=== PATIENT | female | born 1935 | race Asian ===

== ENCOUNTER → 2019-04-03 14:21 | Outpatient (POV) | payer OTHER, MEDICARE, SELFPAY | PROVIDERS: Visit Provider Dermatology | DX: Z00.00 Encounter for general adult medical examination without abnormal findings (principal) ==

== ENCOUNTER 2020-11-07 19:11 | Emergency (ER) | payer MEDICARE, OTHER, SELFPAY ==
[2020-11-07 20:08] VITALS: BP 230/102
[2020-11-07 20:43] VITALS: BP 224/99; PULSE 91; RESP 18; TEMP 36.7; O2SAT 97; BMI 27.8
--- NOTE | 2020-11-07 20:49 | HMH.EDUTC ---
[facility] [place] Disposition Clinical Impression: Right arm pain, Hypertensive crisis Disposition: Still a Patient Condition on Discharge: Fair Referrals: Dereje Marion MD [Primary Care Provider] - Medical Decision Making - Medical Records Medical records reviewed: No: I reviewed the patient's medical records. - Rolando Inquiry Pt receiving controlled substance: No Vital Signs: 11/07/20 20:43 Temperature 98.1 F Temperature Source Oral Pulse Rate [Left] 91 H Respiratory Rate 18 Blood Pressure [Left Arm] 224/99 H Blood Pressure Mean [Left Arm] 140 02 Sat by Pulse Oximetry 97 Medical Decision Narrative: She was transferred to the ER due to her very high b/p and her arm pain. [facility] [place] HPI - General Stated complaint: r elbow hand Time Seen by Provider: 11/07/20 20:49 - History of Present Illness Provider Complaint: She states that for the past 2 days she has had right arm pain. She thinks that she hurt it by trying to lift her . She states that it has hurt basically constantly from her mid-humerus area down to her hand. Nothing that she can identify makes it better or worse. She denies any chest pain and shortness of breath. [facility] History - Hepatitis A Screen Attestation statement:: This patient has been screened for Hepatitis A risk factors. I have reviewed the patient's past medical history: Yes ROS Obtained: Yes All systems reviewed & no additional complaints - Constitutional Constitutional: Denies chills, Denies fever(s) - Eyes Eyes: Denies blind spots, Denies blurry vision, Denies change in vision, Denies diplopia, Denies eye discharge - ENT Ears, Nose, Mouth, and Throat: Denies dizziness, Denies otalgia, Denies sore throat - Cardiovascular Cardiovascular: Denies chest pain - Respiratory Respiratory: Denies chest congestion, Denies cough, Denies dyspnea, Denies stridor, Denies wheezing - Gastrointestinal Gastrointestingal: Denies: abdominal pain, diarrhea, nausea, vomiting - Musculoskeletal Musculoskeletal: Reports as per HPI - Integumentary/Breasts Skin/Breast: Denies redness, Denies rash, Denies wounds - Neurologic Neurologic: Denies tingling/numbness/burning sensations Physical Exam - General General appearance: alert, in no apparent distress - Head Head exam: atraumatic, normocephalic, normal inspection - Eye Eye exam: Present: normal appearance, PERRL, EOMI - ENT ENT exam: Present: normal exam, normal oropharynx, mucous membranes moist, TM's normal bilaterally, normal external ear exam - Neck Neck exam: Present: normal inspection, full ROM, trachea midline. Absent: meningismus, lymphadenopathy - Chest Chest inspection: Present: normal inspection, symmetric chest wall rise. Absent: tenderness - Respiratory Respiratory exam: Present: normal lung sounds bilaterally. Absent: respiratory distress - Cardiovascular Cardiovascular exam: Present: regular rate, normal rhythm. Absent: JVD - Abdominal Exam Abdominal exam: Present: soft, normal bowel sounds. Absent: distention, tenderness, guarding - Extremities Exam Extremities exam: Present: normal inspection, full ROM, normal capillary refill. Absent: calf tenderness - Back Exam Back exam: Present: normal inspection. Absent: tenderness - Neurological Exam Neurological exam: Present: alert, oriented X3 - Psychiatric Psychiatric exam: Present: normal affect, normal mood - Skin Skin exam: Present: warm, dry, intact, normal color - Lymphatic Lymphatic Findings: no adenopathy
--- NOTE | 2020-11-07 21:38 | ECG_ITS ---
APPROVED REPORT Exam: Resting ECG HR:81 bpm ECG Measurements Heart Rate 81 AXES GA 146 P 43 QRSd 82 QRS -19 QT 384 T 9 QTc 446 Conclusion Normal sinus rhythm Nonspecific T wave abnormality Abnormal ECG Electronically signed by : Oscar Kyle MD 11/09/2020 16:05:34
[2020-11-07 22:05] VITALS: BP 230/104; PULSE 78; RESP 18; TEMP 36.6; O2SAT 99; BMI 27.8
[2020-11-07 22:12] VITALS: BP 203/91; PULSE 77; O2SAT 98
--- NOTE | 2020-11-07 22:15 | XR_ITS ---
PROCEDURE INFORMATION: Exam: XR Chest Exam date and time: 11/07/2020 10:15 PM Age: 85 years old Clinical indication: Pain; Chest pressure; Additional info: HTN chest pain TECHNIQUE: Imaging protocol: XR of the chest. Views: 2 views. COMPARISON: No relevant prior studies available. FINDINGS: Lungs: Unremarkable. No consolidation. Pleural spaces: Unremarkable. No pleural effusion. No pneumothorax. Heart/Mediastinum: Unremarkable. No cardiomegaly. Atheromatous calcification of the thoracic aorta. Bones/joints: Degenerative changes present within the thoracic spine and shoulders. There is osteopenia of visualized bones. Mild dextroconvex midthoracic scoliosis. IMPRESSION: No acute findings.
[2020-11-07 22:22] LABS: Basophils # 0.1 K/mm3 (0-0.2); Basophils % 1.7 % (0.1-2.0); Eosinophils # 0.1 K/mm3 (0.0-0.4); Eosinophils % 2.3 % (0.1-12.0); Hemoglobin 14.6 g/dL (12.2-16.2); Lymphocytes # 2.1 K/mm3 (0.7-4.5); Lymphocytes % 34.6 % (10-50); Mean Corpuscular HGB Conc 33.2 g/dL (31.8-35.4); Mean Corpuscular Hemoglobin 32.5 pg (27.0-31.2); Mean Corpuscular Volume 97.8 fl (81-99); Mean Platelet Volume 8.4 fl (7.4-10.4); Monocytes # 0.4 K/mm3 (0.1-1.0); Monocytes % 6.6 % (1.7-9.3); Neutrophils # 3.4 K/mm3 (1.8-7.8); Neutrophils % 54.8 % (37.0-80.0); Platelet Count 253 K/mm3 (142-424); Red Cell Distribution Width 13.7 % (11.5-17.5); White Blood Count 6.2 K/mm3 (4.8-10.8)
[2020-11-07 22:26] LABS: Chloride 103 mmol/L (98-107); Potassium 3.8 mmoL/L (3.5-5.1); Sodium 142 mmol/L (136-145)
[2020-11-07 22:28] LABS: Blood Urea Nitrogen 14 mg/dl (7-17); Creatinine Clearance Estimated 42 mL/min (50-200); Estimated Glomerular Filt Rate 80 ml/min (>60); GFR (African American) 97 ML/MIN (>60)
[2020-11-07 22:29] LABS: Alanine Aminotransferase 56 U/L (12-78); Albumin Level 4.6 g/dl (3.5-5.0); Alkaline Phosphatase 192 U/L (38-126); Anion Gap 13.8 mEq/L (5-15); Aspartate Amino Transferase 67 U/L (14-36); Bilirubin,Direct 0.3 mg/dl (0.0-0.4); Bilirubin,Indirect 0.2 mg/dL (0.0-0.9); Bilirubin,Total 0.5 mg/dl (0.2-1.3); Bilirubin,Unconjugated 0.2 mg/dL (0.0-1.1); Calcium 9.6 mg/dl (8.4-10.2); Carbon Dioxide 29 mmol/L (22.0-30.0); Glucose 123 mg/dl (74-100); Total Protein,Serum 8.8 g/dl (6.3-8.2)
[2020-11-07 22:30] VITALS: BP 196/91; PULSE 75; O2SAT 98
[2020-11-07 23:02] LABS: Troponin I < 0.01 ng/ml (0.00-0.034)
[2020-11-07 23:15] VITALS: BP 191/91; PULSE 72; O2SAT 96
--- NOTE | 2020-11-07 23:27 | HMH.EDRECH ---
ED Disposition Clinical Impression: Right arm pain, Hypertensive crisis Disposition: Home, Self-Care Condition on Discharge: Good Instructions: Essential Hypertension Additional Instructions: use meds and see pcp for follow up Prescriptions: lisinopriL [Lisinopril] 10 mg PO DAILY #30 tab Transmission Status: Sent to [facility] Referrals: Dereje Marion MD [Primary Care Provider] - - Critical Care Critical Care Time: No Attestation: On 11/07/20, the high probability of a clinically significant, sudden or life threatening deterioration of the following system(s) required my full and direct attention, intervention and personal management. The time I documented below is in addition to time spent performing reported procedures but includes the following listed in this critical care notation. Medical Decision Making - Medical Records Medical records reviewed: Yes: I reviewed the patient's medical records. - Rolando Inquiry Pt receiving controlled substance: No Vital Signs: 11/07/20 20:08 11/07/20 20:43 11/07/20 22:05 Temperature 98.1 F 97.8 F Temperature Source Oral Oral Pulse Rate Pulse Rate [Left] 91 H 78 Respiratory Rate 18 18 Blood Pressure 230/102 H Blood Pressure [Left Arm] 224/99 H 230/104 H Blood Pressure Mean [Left Arm] 140 146 Blood Pressure Source Manual Cuff/ Auscultation Blood Pressure Source [Left Arm] Manual Cuff/ Auscultation Blood Pressure Position Supine Blood Pressure Position [Left Arm] Sitting 02 Sat by Pulse Oximetry 97 99 Oxygen Delivery Method Room Air 11/07/20 22:12 11/07/20 22:30 11/07/20 23:15 Temperature Temperature Source Pulse Rate 77 75 72 Pulse Rate [Left] Respiratory Rate Blood Pressure 203/91 H 196/91 H 191/91 H Blood Pressure [Left Arm] Blood Pressure Mean [Left Arm] Blood Pressure Source Blood Pressure Source [Left Arm] Blood Pressure Position Blood Pressure Position [Left Arm] 02 Sat by Pulse Oximetry 98 98 96 Oxygen Delivery Method - Lab Data Lab results reviewed: Yes: I reviewed the patient's lab results. Lab Results 11/07/20 21:58: WBC 6.2, RBC 4.50, Hgb 14.6, Hct 44.0, MCV 97.8, MCH 32.5 H, MCHC 33.2, RDW 13.7, Plt Count 253, MPV 8.4, Neut % (Auto) 54.8, Lymph % (Auto) 34.6, Gem % (Auto) 6.6, Eos % (Auto) 2.3, Baso % (Auto) 1.7, Neut # (Auto) 3.4, Lymph # (Auto) 2.1, Gem # (Auto) 0.4, Eos # (Auto) 0.1, Baso # (Auto) 0.1 11/07/20 21:58: Sodium 142, Potassium 3.8, Chloride 103, Carbon Dioxide 29, Anion Gap 13.8, BUN 14, Creatinine 0.70, Estimated Creat Clear 42, Estimated GFR 80, Est GFR ( Amer) 97, Glucose 123 H, Calcium 9.6, Troponin I < 0.01 11/07/20 21:58: Total Bilirubin 0.5, Direct Bilirubin 0.3, Conjugated Bilirubin 0.0, Indirect Bilirubin 0.2, Unconjugated Bilirubin 0.2, AST 67 H, ALT 56, Alkaline Phosphatase 192 H, Total Protein 8.8 H, Albumin 4.6 Result diagrams: 11/07/20 21:58 11/07/20 21:58 Orders (Tests/Meds): ED MEDICATIONS Generic Name Dose Route Start Last Admin Trade Name Freq PRN Reason Stop Dose Admin Lisinopril 10 mg 11/08/20 09:00 11/07/20 23:39 Lisinopril 10mg Tablet PO 12/08/20 08:59 10 mg DAILY BHAKTI Administration Discontinued Medications Generic Name Dose Route Start Last Admin Trade Name Freq PRN Reason Stop Dose Admin Ketorolac Tromethamine 30 mg 11/07/20 23:34 11/07/20 23:40 Ketorolac 30mg/Ml Vial IV 11/07/20 23:35 30 mg ONCE ONE Administration Methylprednisolone Sodium Succinate 125 mg 11/07/20 23:34 11/07/20 23:39 Methylprednisolone Sod Succ 125mg Vial IV 11/07/20 23:35 125 mg ONCE ONE Administration ORDERS Category Date Time Status Troponin I Q3H Lab 11/08/20 01:15 Ordered Troponin I Q3H Lab 11/08/20 04:15 Ordered - Radiology Data #1 Image(s): Chest Image Reviewed: Yes I reviewed the patient's radiology image, Yes I have reviewed radiologist's interpretation Preliminary Findings:
--- NOTE | 2020-11-07 23:28 | PC.NURSE ---
pt going to radiology.
--- NOTE | 2020-11-07 23:32 | PC.NURSE ---
pt back in room from radiology.
[2020-11-08 00:05] VITALS: BP 195/99; PULSE 72; RESP 18; TEMP 36.7; O2SAT 98
== END 2020-11-08 00:08 | disposition home or self-care (01) ==
LOC: UTC 21:27 → ER 21:33
PROVIDERS: Emergency Medicine; Emergency Provider Nurse Practitioner Family; PCP Family Medicine
DX: M79.601 Pain in right arm (principal); I16.9 Hypertensive crisis, unspecified; X50.0XXA Overexertion from strenuous movement or load, initial encounter; Y92.019 Unspecified place in single-family (private) house as the place of occurrence of the external cause
CPT/HCPCS: 71046; 80048; 80076; 84484; 85025; 93005; 96374; 96375; 99283

== ENCOUNTER → 2020-11-12 13:18 | Outpatient (CLI) | payer MEDICARE, OTHER, SELFPAY ==
--- NOTE | 2020-11-12 13:25 | XR_ITS ---
PROCEDURE: XR HUMERUS RT CLINICAL INDICATION: INJURY OF RT UPPER ARM,INITIAL ENCOUNTER COMPARISON: No exams were available for comparison FINDINGS: No fracture or dislocation. No lytic or blastic change. There is normal mineralization. Mild osteoarthritic change the glenohumeral joint and acromioclavicular joint with suspected calcific tendinitis of the rotator cuff Other findings:None. IMPRESSION: No acute findings. Dictated by: Bobo Jacobson MD 11/12/2020 17:12 Bobo Jacobson MD in [place] 11/12/2020 17:12
--- NOTE | 2020-11-12 13:25 | XR_ITS ---
PROCEDURE: XR SHOULDER RT MIN 2V CLINICAL INDICATION: INJURY OF RT UPPER ARM,INITIAL ENCOUNTER COMPARISON: No exams were available for comparison FINDINGS: No fracture or dislocation. No lytic or blastic change. There is normal mineralization. There are mild osteoarthritic changes of the acromioclavicular and glenohumeral joint. Minimal calcification noted along the greater tuberosity of the humeral head and could be related to calcific tendinitis or small spur. Other findings:None. 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
== END ==
PROVIDERS: PCP Nurse Practitioner Family; Visit Provider Nurse Practitioner Family
DX: S49.91XA Unspecified injury of right shoulder and upper arm, initial encounter (principal)
CPT/HCPCS: 73030; 73060

== ENCOUNTER → 2020-11-28 09:18 | Outpatient (CLI) | payer MEDICARE, OTHER, SELFPAY ==
--- NOTE | 2020-11-28 09:25 | XR_ITS ---
PROCEDURE: XR ELBOW RT MIN 3V CLINICAL INDICATION: RT tennis elbow COMPARISON: CR XR HUMERUS RT from 11/12/2020 FINDINGS: No acute fracture or dislocation. A faint lucency is noted in the subcortical region of the medial epicondyle nonspecific but could be related to an old injury or ligamentous calcification. IMPRESSION: Faint lucency of the medial epicondyle which could be related to an old avulsion injury or ligamentous calcification otherwise negative Dictated by: Bobo Jacobson MD 11/28/2020 14:36 Bobo Jacobson MD in [place] 11/28/2020 14:36
== END ==
PROVIDERS: PCP Nurse Practitioner Family; Visit Provider Orthopaedic Surgery
DX: M77.11 Lateral epicondylitis, right elbow (principal)
CPT/HCPCS: 73080

== ENCOUNTER 2022-02-04 04:16 | Emergency (ER) | payer MEDICARE, OTHER, SELFPAY ==
[2022-02-04] VITALS (9 sets, daily range): BP systolic 159–212; BP diastolic 84–107; PULSE 81–96; RESP 16; TEMP 36.9–37.1; O2SAT 95–99; BMI 25.4
--- NOTE | 2022-02-04 04:29 | ECG_ITS ---
APPROVED REPORT Exam: Resting ECG HR:95 bpm ECG Measurements Heart Rate 95 AXES AZ 161 P 25 QRSd 91 QRS -26 QT 333 T 34 QTc 386 Conclusion SINUS RHYTHM BORDERLINE LEFT AXIS DEVIATION [QRS AXIS < -20] MODERATE ST DEPRESSION [0.05+ mV ST DEPRESSION] ABNORMAL ECG UNCONFIRMED REPORT Electronically signed by : Oscar Kyle MD 02/04/2022 20:16:30
--- NOTE | 2022-02-04 05:03 | XR_ITS ---
PROCEDURE INFORMATION: Exam: XR Chest Exam date and time: 02/04/2022 5:18 AM Age: 86 years old Clinical indication: Cardiovascular condition or disease; Other: Elevated BP TECHNIQUE: Imaging protocol: Radiologic exam of the chest. Views: 1 view. COMPARISON: CR XR CHEST 2V 11/07/2020 11:21 PM FINDINGS: Lungs: Unremarkable. No consolidation. Pleural spaces: Unremarkable. No pleural effusion. No pneumothorax. Heart/Mediastinum: Unremarkable. No cardiomegaly. Bones/joints: Unremarkable. IMPRESSION: No acute findings.
[2022-02-04 05:17] LABS: Coronavirus 19, PCR Not Detected (NotDetected); Influenza A, PCR Not Detected (NotDetected); Influenza B, PCR Not Detected (NotDetected)
[2022-02-04 05:29] LABS: Basophils # 0.1 K/mm3 (0-0.2); Basophils % 1.2 % (0.1-2.0); Eosinophils # 0.2 K/mm3 (0.0-0.4); Eosinophils % 3.3 % (0.1-12.0); Hematocrit 42.9 % (37.0-47.0); Hemoglobin 14.2 g/dL (12.2-16.2); Lymphocytes # 3.5 K/mm3 (0.7-4.5); Lymphocytes % 47.3 % (10-50); Mean Corpuscular HGB Conc 33.1 g/dL (31.8-35.4); Mean Corpuscular Hemoglobin 32.3 pg (27.0-31.2); Mean Corpuscular Volume 97.4 fl (81-99); Mean Platelet Volume 7.6 fl (7.4-10.4); Monocytes # 0.5 K/mm3 (0.1-1.0); Monocytes % 6.7 % (1.7-9.3); Neutrophils % 41.5 % (37.0-80.0); Platelet Count 242 K/mm3 (142-424); Red Blood Count 4.41 M/mm3 (4.20-5.40); Red Cell Distribution Width 13.6 % (11.5-17.5); White Blood Count 7.3 K/mm3 (4.8-10.8)
[2022-02-04 05:31] LABS: Chloride 104 mmol/L (98-107); Potassium 3.9 mmoL/L (3.5-5.1); Sodium 141 mmol/L (136-145)
[2022-02-04 05:34] LABS: Alanine Aminotransferase 54 U/L (12-78); Albumin Level 4.6 g/dl (3.5-5.0); Albumin/Globulin Ratio 1.2 (1.1-1.8); Alkaline Phosphatase 233 U/L (38-126); Anion Gap 12.9 mEq/L (5-15); Aspartate Amino Transferase 67 U/L (14-36); Bilirubin,Total 0.6 mg/dl (0.2-1.3); Blood Urea Nitrogen 16 mg/dl (7-17); Carbon Dioxide 28 mmol/L (22.0-30.0); Creatinine Clearance Estimated 40 mL/min (50-200); Estimated Glomerular Filt Rate 68 ml/min (>60); GFR (African American) 83 ML/MIN (>60); Globulin 3.8 g/dL (1.3-3.2); Total Protein,Serum 8.4 g/dl (6.3-8.2)
[2022-02-04 05:35] LABS: Calcium 10.3 mg/dl (8.4-10.2); Glucose 147 mg/dl (74-100)
--- NOTE | 2022-02-04 05:35 | HMH.EDGENADL ---
Discharge Plan Disposition Patient Disposition: Home, Self-Care Chief Complaint: Recheck/Abnormal Lab/Rx Prescriptions Prescriptions: No Action aspirin 81 mg Capsule 81 mg PO DAILY lisinopril 10 MG tablet 20 mg PO BID Referrals Follow up/Referrals: Cynthia Clay APRN [Primary Care Provider] - See instructions Clinical Impressions Clinical Impression: HTN (hypertension), Hypertensive crisis Discharge ED Provider: Daniel Valadez General Adult HPI General Chief complaint: Recheck/Abnormal Lab/Rx Stated complaint: HBP; dizzy Time Seen by Provider: 02/04/22 04:25 Mode of Arrival: Ambulatory Source of Information: Patient and Medical Record Limitations: No Limitations Description of Symptoms (Recalled from ER Triage Doc. by RN): pt stated that she took her blood pressure and it was elevated. the pt stated that she then took it every 5to 10 mins and when it reached 200+ systolic she came in History of Present Illness HPI narrative: pt with elevated bp w/o chest pain or neuro sx - pt has been compliant with meds Onset (ago): hour(s) Severity: moderate Associated symptoms: denies other symptoms Related Data Home Medications Medication Instructions Recorded Confirmed aspirin 81 mg capsule 81 mg PO DAILY Supplement 02/04/22 02/04/22 lisinopril 10 mg tablet 20 mg PO BID Hypertension 02/04/22 02/04/22 Allergies Allergy/AdvReac Type Severity Reaction Status Date / Time No Known Allergies Allergy Verified 11/28/20 10:34 [facility] Disclaimer: The information contained in this section may have been updated after the patient was seen, as this information can be updated by other users. Social History Smoking Status: Never smoker alcohol intake: never current occupational status: other Travel in the last 8 weeks: None ROS Obtained: Yes All systems reviewed & no additional complaints except as documented Physical Exam General General appearance: alert Head Head exam: normocephalic Eye Eye exam: Present PERRL and EOMI ENT ENT exam: Present mucous membranes moist Neck Neck exam: Present trachea midline Respiratory Respiratory exam: Absent respiratory distress Cardiovascular Cardiovascular exam: Present regular rate and systolic murmur Abdominal Exam Abdominal exam: Present soft Neurological Exam Neurological exam: Present alert, oriented X3 and CN II-XII intact Psychiatric Psychiatric exam: Present normal affect Skin Skin exam: Absent rash Medical Decision Making Medical Records Medical records reviewed: Yes I reviewed the patient's medical records. Rolando Inquiry Pt receiving controlled substance: No Vital Signs: 02/04/22 04:18 02/04/22 05:23 02/04/22 05:00 Temperature 98.5 F 98.5 F Temperature Source Oral Oral Pulse Rate 93 H 82 Pulse Rate [Left Radial] 96 H Respiratory Rate 16 16 Blood Pressure 189/95 H 186/91 H Blood Pressure [Right Arm] 212/107 H Blood Pressure Mean Blood Pressure Mean [Right Arm] 142 02 Sat by Pulse Oximetry 99 99 97 Oxygen Delivery Method Room Air Room Air 02/04/22 05:16 02/04/22 05:30 02/04/22 05:45 Temperature Temperature Source Pulse Rate 82 81 Pulse Rate [Left Radial] Respiratory Rate Blood Pressure 182/93 H 185/93 H 187/84 H Blood Pressure [Right Arm] Blood Pressure Mean 123 118 Blood Pressure Mean [Right Arm] 02 Sat by Pulse Oximetry 97 95 Oxygen Delivery Method 02/04/22 06:00 02/04/22 06:01 02/04/22 06:18 Temperature Temperature Source Pulse Rate 81 81 Pulse Rate [Left Radial] Respiratory Rate Blood Pressure 159/87 H Blood Pressure [Right Arm] Blood Pressure Mean Blood Pressure Mean [Right Arm] 02 Sat by Pulse Oximetry 96 96 Oxygen Delivery Method Room Air 02/04/22 06:18 Temperature 98.7 F Temperature Source Oral Pulse Rate 92 H Pulse Rate [Left Radial] Respiratory Rate 16 Blood Pressure 163/89 H Blood Pressure [Right Arm]
[2022-02-04 06:15] LABS: Troponin I < 0.01 ng/ml (0.00-0.034)
== END 2022-02-04 06:46 | disposition home or self-care (01) ==
PROVIDERS: Emergency Provider Emergency Medicine; PCP Nurse Practitioner Family
DX: I16.9 Hypertensive crisis, unspecified (principal); R03.0 Elevated blood-pressure reading, without diagnosis of hypertension; R79.9 Abnormal finding of blood chemistry, unspecified; R42 Dizziness and giddiness; Z20.822 Contact with and (suspected) exposure to COVID-19; Z79.82 Long term (current) use of aspirin; Z79.899 Other long term (current) drug therapy
CPT/HCPCS: 71045; 80053; 84484; 85025; 93005; 99284; C9803; U0003; U0005

== ENCOUNTER 2024-05-24 15:03 | Outpatient (CLI) | payer MEDICARE, OTHER, SELFPAY ==
--- NOTE | 2024-05-24 15:07 | XR_ITS ---
FINAL REPORT CLINICAL HISTORY: fall. swelling and bruising on the back and lateral side of her hand COMPARISON: None FINDINGS: RIGHT WRIST Three views of the right wrist were obtained. There is a 3 mm ossific density along the dorsal aspect of the proximal carpal row consistent with a triquetral avulsion. This is best seen on the lateral view. There are mild hypertrophic changes at the basilar joint. There is soft tissue edema over the dorsum of the wrist. IMPRESSION: Findings consistent with a triquetral avulsion along the dorsal aspect of the proximal carpal row. Soft tissue edema over the dorsum of the wrist. Reviewed, Interpreted and Dictated by Mario Garcia MD Transcribed by Liliane Harp Authenticated and [facility]
--- NOTE | 2024-05-24 15:07 | XR_ITS ---
FINAL REPORT CLINICAL HISTORY: fall. swelling and bruising on the back and lateral side of her hand COMPARISON: None FINDINGS: RIGHT HAND Three views of the right hand were obtained. There is a 3 mm ossific density along the dorsal aspect of the proximal carpal row consistent with a triquetral avulsion. There are mild hypertrophic changes at the basilar joint. There is moderate soft tissue edema over the dorsum of the hand measuring 11 mm. IMPRESSION: Findings consistent with a triquetral avulsion dorsal aspect of the proximal carpal row. Soft tissue edema over the dorsum of the hand. Reviewed, Interpreted and Dictated by Mario Garcia MD Transcribed by Liliane Harp Authenticated and [facility]
== END 2024-05-24 23:59 | disposition home or self-care (01) ==
LOC: RAD 15:04
PROVIDERS: PCP Family Medicine; Visit Provider Nurse Practitioner
DX: M25.531 Pain in right wrist (principal)
CPT/HCPCS: 73100; 73130

== ENCOUNTER 2024-05-25 11:49 | Emergency (ER) | payer MEDICARE, OTHER, SELFPAY ==
[2024-05-25 11:58] VITALS: BP 99/42; PULSE 71; RESP 19; TEMP 36.6; O2SAT 98; BMI 32.3
--- NOTE | 2024-05-25 12:14 | HMH.EDGENADL ---
Discharge Plan Disposition Patient Disposition: Home, Self-Care Condition: Good Prescriptions Prescriptions: No Action aspirin 81 mg Capsule 81 mg PO DAILY lisinopril 10 MG tablet 20 mg PO BID Referrals Follow up/Referrals: Dereje Marion MD [Primary Care Provider] - See instructions Perry Echols DO [Staff Physician] - See instructions Activity Restrictions/Add. Instructions Additional Instructions/Restrictions: I recommend continued ice to reduce swelling, 1000 mg of Tylenol alternating every 4 hours with 800 mg of Motrin for pain and swelling. Please wear your wrist brace at all times except when showering. I have referred you to Dr. Shawn Echols of orthopedics. Please call on Tuesday to make your appointment. If you have any continued new or worsening signs or symptoms follow-up with your PCP or return to the ER as needed. Clinical Impressions Clinical Impression: Fracture of triquetral bone of wrist Qualifiers: Encounter type: initial encounter Fracture type: closed Laterality: right Instructions Patient Instructions: DI for Wrist Fracture Print Language Print Language: Macanese Discharge ED Provider: Nancy Crandall General Adult HPI <JACQUELINE Victor - Last Filed: 05/25/24 12:39> General Chief complaint: Extremity Injury, Upper Stated complaint: needs splint on hand per Dr Krishnamurthy instr Time Seen by Provider: 05/25/24 12:14 History of Present Illness HPI narrative: Patient presents for evaluation of right wrist injury. Patient slipped on her porch and suffered a right wrist injury. This happened 2 days ago. She was seen by her PCP yesterday and outpatient x-rays were ordered. She was found to have an avulsion fracture of the triquetral bone. She was sent to the ER by her PCP for evaluation. Patient denies any other injury but reports pain and swelling and reduced range of motion due to the pain. She has no numbness tingling loss of motor or sensory other than due to pain. Related Data Home Medications ?Medication ?Instructions ?Recorded ?Confirmed aspirin 81 mg capsule 81 mg PO DAILY Supplement 02/04/22 02/04/22 lisinopril 10 mg tablet 20 mg PO BID Hypertension 02/04/22 02/04/22 Allergies Allergy/AdvReac Type Severity Reaction Status Date / Time No Known Allergies Allergy Verified 11/28/20 10:34 PFS <JACQUELINE Victor - Last Filed: 05/25/24 12:39> [facility] Disclaimer: The information contained in this section may have been updated after the patient was seen, as this information can be updated by other users. Social History Smoking Status: Never smoker alcohol intake: never current occupational status: other Travel in the last 8 weeks: None Have you lived/traveled outside [place] in past 30 days?: No Contact w/someone who lives/traveled outside [place] past 30 days?: No Exposure to someone with infectious disease in past 14 days?: No Do you have a fever (greater than 100.4 F or 38 C)?: No Have you tested positive for COVID-19: No Exposed to someone with COVID-19 in past 14 days?: No Do you have a sore throat?: No Do you have a cough?: No Do you have any weakness?: No Do you have any diarrhea?: No Are you experiencing any unusual bleeding?: No Do you have any muscle aches/pain?: No Do you have any abdominal pain?: No Are you experiencing loss of taste or smell?: No Other Medical History Have you received the Flu Vaccine for this season: Yes Have you received the Pneumonia Vaccine: No <JACQUELINE Victor - Last Filed: 05/25/24 12:39> ROS Obtained: Yes Systems reviewed as appropriate & no additional complaints except as documented Physical Exam <JACQUELINE Victor Last Filed: 05/25/24 12:39> General General appearance: alert and in no apparent distress Respiratory Respiratory exam: Present normal lung sounds bilaterally Cardiovascular Cardiovascular exam: Present regular rate Neurological Exam Neurological exam: Present alert and oriented X3 Medical Decision Making <JACQUELINE Victor Last Filed: 05/25/24 12:39> Medical Records Screening: Per USPSTF and CDC recommendations, given the prevalence of disease in our region, it is our hospital?s policy to screen for HIV and viral Hepatitis for all patients aged 18 and over and those with ongoing risk factors. Rolando Inquiry Pt receiving controlled substance: No Vital Signs: 05/25/24 11:58 05/25/24 12:35 Temperature 97.9 F 97.8 F Temperature Source Oral Oral Pulse Rate 83 Pulse Rate [Right] 71 Respiratory Rate 19 17 Blood Pressure 91/50 L Blood Pressure [Left Arm] 99/42 L Blood Pressure Mean [Left Arm] 61 Blood Pressure Source Automatic Cuff Blood Pressure Source [Left Arm] Automatic Cuff 02 Sat by Pulse Oximetry 98 Oxygen Delivery Method Room Air Room Air Medical Decision Narrative: In summary patient is a 88-year-old female who presents to the emergency department for evaluation of right triquetral fracture. Patient is hemodynamically stable upon arrival, afebrile. Physical exam is remarkable for ecchymosis and swelling about the right wrist with no palpable bony deformity. Patient has good ulnar and radial pulses. She moves all of her fingers and is neurovascularly intact distally. She does have some painful range of motion but is able to flex and extend pronate and supinate. Differential diagnosis includes includes soft tissue injury as well as an avulsion fracture of the triquetral bone given that we already have x-rays with a confirmed radiologic diagnosis of bony injury will defer workup of soft tissue to the orthopedic surgeon.. Initial workup has already been performed by her PCP and patient has an isolated wrist injury and has no other complaints further workup is deferred. I did have an interactive discussion with Dr. Echols regarding her presentation and patient management Dr. Echols wants her in a removable wrist splint and he will see her in the office in follow-up. Given this patient is appropriate for discharge after application of the removable spica splint and referral to orthopedic surgery for ongoing management and care. <Nancy Crandall MD - Last Filed: 05/25/24 13:44> Vital Signs: 05/25/24 11:58 05/25/24 12:35 Temperature 97.9 F 97.8 F Temperature Source Oral Oral Pulse Rate 83 Pulse Rate [Right] 71 Respiratory Rate 19 17 Blood Pressure 91/50 L Blood Pressure [Left Arm] 99/42 L Blood Pressure Mean [Left Arm] 61 Blood Pressure Source Automatic Cuff Blood Pressure Source [Left Arm] Automatic Cuff 02 Sat by Pulse Oximetry 98 Oxygen Delivery Method Room Air Room Air Medical Decision Narrative: In summary patient is a 88-year-old female who presents to the emergency department for evaluation of right triquetral fracture. Patient is hemodynamically stable upon arrival, afebrile. Physical exam is remarkable for ecchymosis and swelling about the right wrist with no palpable bony deformity. Patient has good ulnar and radial pulses. She moves all of her fingers and is neurovascularly intact distally. She does have some painful range of motion but is able to flex and extend pronate and supinate. Differential diagnosis includes includes soft tissue injury as well as an avulsion fracture of the triquetral bone given that we already have x-rays with a confirmed radiologic diagnosis of bony injury will defer workup of soft tissue to the orthopedic surgeon.. Initial workup has already been performed by her PCP and patient has an isolated wrist injury and has no other complaints further workup is deferred. I did have an interactive discussion with Dr. Echols regarding her presentation and patient management Dr. Echols wants her in a removable wrist splint and he will see her in the office in follow-up. Given this patient is appropriate for discharge after application of the removable spica splint and referral to orthopedic surgery for ongoing management and care. I was consulted by the EDWARD, and we discussed the complexity of problems being addressed. I approved the treatment and management plan for this patient's care in the emergency department, thus performing a substantial portion of the medical decision making. Nancy Crandall MD Critical Care <JACQUELINE Victor - Last Filed: 05/25/24 12:39> Critical Care Time Critical Care Time: No
[2024-05-25 12:35] VITALS: BP 91/50; PULSE 83; RESP 17; TEMP 36.6; O2SAT 98
== END 2024-05-25 12:39 | disposition home or self-care (01) ==
PROVIDERS: Emergency Provider Student in an Organized Health Care Education/Training Program; PCP Family Medicine
DX: M25.531 Pain in right wrist (principal); M25.431 Effusion, right wrist; M25.631 Stiffness of right wrist, not elsewhere classified; S62.101A Fracture of unspecified carpal bone, right wrist, initial encounter for closed fracture; W01.0XXA Fall on same level from slipping, tripping and stumbling without subsequent striking against object, initial encounter
CPT/HCPCS: 99282

== ENCOUNTER 2024-06-19 11:28 | Outpatient (CLI) | payer MEDICARE, OTHER, SELFPAY ==
--- OUTSIDE RECORDS SUMMARY | 2024-06-19 11:30 | XMS_ITS | Continuity of Care Document ---
Author Name [facility] Organization [facility] Care Team Providers Care Instructional Support Assistant Name Role Phone [facility] Unavailable Unavailable Social History Combined list of available smoking, tobacco, and other social history from [facility] and [facility] facilities. Social History Type Response Date Comment Sourc e This section is an empty social history section. [facility]
--- OUTSIDE RECORDS SUMMARY | 2024-06-19 11:30 | XMS_ITS ---
Author Organization Unknown TREATMENT PLAN Planned Care Start Date Provider Encounter for Check-up [id number] DILIA Marion
--- NOTE | 2024-06-19 11:32 | XR_ITS ---
FINAL REPORT CLINICAL HISTORY: right wrist pain COMPARISON: 05/24/2024 FINDINGS: RIGHT WRIST Three views demonstrate no acute fracture or dislocation. 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 A 3 mm ossific density is seen at the dorsal wrist related to old triquetral fracture. The visualized joint spaces are normally aligned. The soft tissues are unremarkable. IMPRESSION: No acute bony abnormality. Reviewed, Interpreted and Dictated by Mario Garcia MD Transcribed by Faviola St Authenticated and [facility]
== END 2024-06-19 23:59 | disposition home or self-care (01) ==
LOC: RAD 11:29
PROVIDERS: PCP Family Medicine; Visit Provider Physician Assistant Surgical
DX: M25.531 Pain in right wrist (principal)
CPT/HCPCS: 73110

== ENCOUNTER 2024-07-17 12:39 | Outpatient (CLI) | payer MEDICARE, OTHER, SELFPAY ==
--- OUTSIDE RECORDS SUMMARY | 2024-07-17 12:42 | XMS_ITS | Continuity of Care Document ---
Author Name [facility] Organization [facility] Care Team Providers Care Catshovel Driver Name Role Phone [facility] Unavailable Unavailable Social History Combined list of available smoking, tobacco, and other social history from [facility] and [facility] facilities. Social History Type Response Date Comment Sourc e This section is an empty social history section. DoD
--- NOTE | 2024-07-17 12:44 | XR_ITS ---
FINAL REPORT CLINICAL HISTORY: fu rt wrist COMPARISON: 06/19/2024 FINDINGS: RIGHT WRIST Three views were obtained. There is no fracture or dislocation. There are moderate degenerative changes of the first carpometacarpal joint. The bones are osteopenic. No soft tissue abnormality is identified. IMPRESSION: Stable chronic changes. Reviewed, Interpreted and Dictated by Ora Duke MD Transcribed by Stephanie Mckenzie Authenticated and [facility]
== END 2024-07-17 23:59 | disposition home or self-care (01) ==
LOC: RAD 12:41
PROVIDERS: PCP Family Medicine; Visit Provider Physician Assistant Surgical
DX: M18.9 Osteoarthritis of first carpometacarpal joint, unspecified (principal); S62.102A Fracture of unspecified carpal bone, left wrist, initial encounter for closed fracture
CPT/HCPCS: 73100; 73110

== ENCOUNTER 2025-01-11 11:20 | Outpatient (CLI) | payer MEDICARE, OTHER, SELFPAY | END 2025-01-11 23:59 | disposition home or self-care (01) | PROVIDERS: PCP Family Medicine; Visit Provider Nurse Practitioner | DX: I49.1 Atrial premature depolarization (principal); I47.19 Other supraventricular tachycardia; I49.3 Ventricular premature depolarization; I99.8 Other disorder of circulatory system | CPT/HCPCS: 93270; 93272 ==